=== PATIENT | female | born 1960 | race Caucasian/White ===

== ENCOUNTER 2016-03-23 09:31 | Observation (INO) | payer OTHER ==
[~2016-03-23] VITALS: Ht 157.5 cm; Wt 57.6 kg
--- NOTE | 2016-03-23 09:51 | NUR ---
PT PRESENTS TO ER C/O OF MIDSTERNAL CHEST PRESSURE THAT RADIATES DOWN LEFT ARM. PT ALSO STATES PAIN RADIATES TO LEFT SHOULDER BLADE. PT STATES SHE FEELS LIKE SHARP STABBING PAINS. PT STATES A SIMILAR EPISODE HAPPENED LAST YEAR BUT WAS CLEARED. PT STATES YESTERDAY SHE FELT LIKE HER BP WAS HIGH BECAUSE SHE WAS DIZZY. PT SCREAMING IN PAIN ON ARRIVAL.
--- NOTE | 2016-03-23 09:59 | NUR ---
MED STUDENT AT BEDSIDE FOR EVAL. REASSSURANCE PROVIDED TO PATIENT TO HELP DECREAE ANXIETY.
--- NOTE | 2016-03-23 09:59 | NUR ---
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
--- NOTE | 2016-03-23 10:04 | ED CARDIAC/CP/PALPITATIONS ---
See Addendum History of Present Illness General Chief Complaint: Chest Pain Stated Complaint: CP, BACK PAIN, ARM PAIN Source: patient, family Exam Limitations: no limitations Vital Signs & Intake/Output Vital Signs & Intake/Output Vital Signs Date Time Temp Pulse Resp B/P Pulse O2 O2 Flow FiO2 Ox Delivery Rate 03/23 1319 Room Air Room Air 03/23 1256 98.3 89 18 137/7 96 Room Air 03/23 0952 98.0 78 20 132/85 99 Room Air Allergies Coded Allergies: No Known Allergies (03/23/16) Reconcile Medications No Known Home Medications Triage Note: PT PRESENTS TO ER C/O OF MIDSTERNAL CHEST PRESSURE THAT RADIATES DOWN LEFT ARM. PT ALSO STATES PAIN RADIATES TO LEFT SHOULDER BLADE. PT STATES SHE FEELS LIKE SHARP STABBING PAINS. PT STATES A SIMILAR EPISODE HAPPENED LAST YEAR BUT WAS CLEARED. PT STATES YESTERDAY SHE FELT LIKE HER BP WAS HIGH BECAUSE SHE WAS DIZZY. PT SCREAMING IN PAIN ON ARRIVAL. Triage Nurses Notes Reviewed? yes HPI: Patient presents with a worsening sharp stabbing pain in her neck that radiates to her left shoulder blade down her left arm into her chest. Pain started 2 days ago and has been steadily worsening. Pain is currently a 10 out of 10. Patient cannot find any position of comfort. There is no numbness and tingling in her left arm. There are no aggravating or mitigating factors. Patient denies any shortness of breath. There is no lightheadedness. There is no nausea or vomiting. Patient was at work today and then just could not take the pain anymore so she comes to the emergency room for evaluation. Past History Travel History Traveled to [place] past 21 day No Medical History Any Pertinent Medical History? none Neurological: NONE EENT: NONE Cardiovascular: NONE Respiratory: NONE Gastrointestinal: NONE Hepatic: NONE Renal: NONE Musculoskeletal: NONE Surgical History Surgical History: non-contributory Psychosocial History What is your primary language Khmer Tobacco Use: Never used ETOH Use: occasional use Illicit Drug Use: denies illicit drug use Family History Hx Contributory? No Review of Systems Review of Systems Constitutional: Reports: no symptoms. EENTM: Reports: no symptoms. Respiratory: Reports: no symptoms. Cardiovascular: Reports: see HPI, chest pain. GI: Reports: no symptoms. Genitourinary: Reports: no symptoms. Musculoskeletal: Reports: see HPI, back pain, neck pain. Skin: Reports: no symptoms. Neurological/Psychological: Reports: no symptoms. Hematologic/Endocrine: Reports: no symptoms. Immunologic/Allergic: Reports: no symptoms. All Other Systems: Reviewed and Negative Physical Exam Physical Exam General Appearance: well developed/nourished, alert, anxious, severe distress Head: atraumatic, normal appearance Eyes: Bilateral: PERRL, EOMI. Ears, Nose, Throat: normal pharynx, normal ENT inspection, hearing grossly normal Neck: normal inspection, supple, full range of motion, no midline tenderness Respiratory: normal breath sounds, chest non-tender, no respiratory distress, lungs clear Cardiovascular: regular rate/rhythm, normal peripheral pulses Gastrointestinal: normal bowel sounds, soft, non-tender, no organomegaly Back: normal inspection, normal range of motion, no vertebral tenderness Extremities: normal inspection, normal capillary refill, normal range of motion, no edema Neurologic/Psych: no motor/sensory deficits, awake, alert, oriented x 3, normal mood/affect Skin: intact, normal color, warm/dry Core Measures ACS in differential dx? Yes ASA ordered for poss ACS? No-ACS ruled out Severe Sepsis Present: No Septic Shock Present: No Progress Differential Diagnosis: AMI Plan of Care: Orders Procedure Date/time Status MRI-CERVICAL SPINE 03/23 1419 Active Telemetry/Reconciliation Clerk 03/23 1012 Active TROPONIN LEVEL 03/23 1012 Complete D-DIMER 03/23 1012 Complete COMPREHENSIVE METABOLIC PANEL 03/23 1012 Complete CBC WITHOUT DIFFERENTIAL 03/23 1012 Complete EKG 03/23 0932 Active Laboratory Tests 03/23/16 1014: Anion Gap 10, Estimated GFR > 60, BUN/Creatinine Ratio 31.4 H, Glucose 85, Calcium 10.7 H, Total Bilirubin 0.7, AST 32, ALT 38, Alkaline Phosphatase 89, Troponin I < 0.01, Total Protein 7.9, Albumin 4.6, Globulin 3.3, Albumin/ Globulin Ratio 1.4, D-Dimer < 200, CBC w Diff NO MAN DIFF REQ, RBC 4.83, MCV 87.2, MCH 30.2, RDW 13.3, MPV 9.1, Gran % 58.4, Lymphocytes % 28.9, Monocytes % 6.5, Eosinophils % 4.7, Basophils % 1.5, Absolute Granulocytes 3.7, Absolute Lymphocytes 1.8, Absolute Monocytes 0.4, Absolute Eosinophils 0.3, Absolute Basophils 0.1, PUBS MCHC 34.7 Diagnostic Imaging: Viewed by Me: Radiology Read. Discussed w/RAD: Radiology Read. Radiology Impression: PATIENT: FRANCINE PAL PRESENT AGE: 55 PATIENT ACCOUNT NO: [id number] : 61 LOCATION: [facility] ORDERING PHYSICIAN: DOMINGA DAVIS MD SERVICE DATE: 03/23/161230 EXAM TYPE: CAT - CTA CHEST-AORTIC DISSECTION EXAMINATION: CTA CHEST CLINICAL INFORMATION: Dissection. Chest pain to back. COMPARISON: Chest x-ray performed same day. TECHNIQUE: Contiguous helical images of the chest were obtained following the administration of IV contrast. Multiplanar reconstructions were performed. MIPs were obtained and reviewed. CONTRAST: 95 mL Optiray 350. FINDINGS: CARDIOVASCULAR: Aorta: Normal. No dissection or aneurysm. Pulmonary Arteries and Branches: Normal. HEART: Unremarkable. No pericardial effusion. No arterial calcification LUNGS AND PLEURAL SPACES: Minimal posterior dependent atelectasis bilaterally. Airways: Clear. THORACIC INLET: Normal. ESOPHAGUS: Normal. LYMPH NODES: Normal. SOFT TISSUES AND CHEST WALL: Normal. UPPER ABDOMEN: Normal. SKELETAL: Minimal spondylosis of the dorsal spine. IMPRESSION: 1. No acute or significant abnormality. 2. No evidence for aortic dissection. 3. No pulmonary embolism. DICTATED BY: MAEGAN MCLAUGHLIN MD DATE/TIME DICTATED:03/23/161257 NEIGHBORHOOD CONSERVATION OFFICER:GIULIANO DATE/TIME TRANSCRIBED:03/23/161257 CONFIDENTIAL, DO NOT COPY WITHOUT APPROPRIATE AUTHORIZATION. <Electronically signed in Other Vendor System> SIGNED BY: MAEGAN MCLAUGHLIN MD 03/23/16 1354 CXR Impression: PATIENT: FRANCINE PAL PRESENT AGE: 55 PATIENT ACCOUNT NO: [id number] : 61 LOCATION: [facility] ORDERING PHYSICIAN: DOMINGA DAVIS MD SERVICE DATE: 03/23/161012 EXAM TYPE: RAD - XRY- PORTABLE CHEST XRAY EXAMINATION: XR PORTABLE CHEST CLINICAL INFORMATION: Chest pain COMPARISON: None. TECHNIQUE: Portable view of the chest was obtained. FINDINGS: No significant abnormality is noted involving the heart, lungs, mediastinum, bony thorax or soft tissues. IMPRESSION: Unremarkable examination. DICTATED BY: MAEGAN MCLAUGHLIN MD DATE/TIME DICTATED:03/23/161052 NEIGHBORHOOD CONSERVATION OFFICER:GIULIANO DATE/TIME TRANSCRIBED:03/23/161052 CONFIDENTIAL, DO NOT COPY WITHOUT APPROPRIATE AUTHORIZATION. <Electronically signed in Other Vendor System> SIGNED BY: MAEGAN MCLAUGHLIN MD 03/23/161056 Initial ED EKG: NSR, no ST T wave changes Hand-Off Endorsed To: NEAL LEDBETTER MD Endorsed Time: 1427 Pending: MRI Departure Departure Disposition: STILL A PATIENT Condition: Stable Clinical Impression Primary Impression: Neck pain Referrals: PATIENT HAS NO PRIMARY CARE DR Departure Forms: Customer Survey General Discharge Information Prescriptions: Current Visit Scripts No Known Home Medications Critical Care Note Critical Care Note Critical Care Time: non-applicable
--- NOTE | 2016-03-23 10:15 | NUR ---
Labs drawn and sent
--- NOTE | 2016-03-23 10:25 | NUR ---
PT WRITHING AROUND ON STRETCHER, YELLING IN PAIN. MEDICATED PER EMAR. WILL CONTINUE TO MONITOR.
[2016-03-23 10:27] LABS: ABSOLUTE BASOPHIL COUNT 0.1 /CUMM (0.0-0.2); ABSOLUTE EOSINOPHIL COUNT 0.3 /CUMM (0.0-0.7); ABSOLUTE GRANULOCYTE CT 3.7 /CUMM (1.4-6.5); ABSOLUTE LYMPH COUNT 1.8 /CUMM (1.2-3.4); ABSOLUTE MONOCYTE COUNT 0.4 /CUMM (0.10-0.60); BASOPHIL % 1.5 % (0.0-2.0); EOSINOPHIL % 4.7 % (0-5); GRANULOCYTE % 58.4 % (42.2-75.2); HEMATOCRIT 42.1 % (37-47); MEAN CORPUSCULAR HGB 30.2 PG (27.0-31.0); MEAN CORPUSCULAR HGB CONC 34.7 G/DL (33.0-37.0); MEAN CORPUSCULAR VOLUME 87.2 FL (81.0-99.0); MEAN PLATELET VOLUME 9.1 FL (7.4-10.4); PLATELET COUNT 240 /CUMM (130-400); RBC DISTRIBUTION WIDTH 13.3 % (11.5-14.5); RED BLOOD CELL CT 4.83 /CUMM (4.20-5.40); WHITE BLOOD CELL COUNT 6.4 /CUMM (4.8-10.8)
--- NOTE | 2016-03-23 10:57 | RADIOLOGY REPORT ---
EXAMINATION: XR PORTABLE CHEST CLINICAL INFORMATION: Chest pain COMPARISON: None. TECHNIQUE: Portable view of the chest was obtained. FINDINGS: No significant abnormality is noted involving the heart, lungs, mediastinum, bony thorax or soft tissues. IMPRESSION: Unremarkable examination.
--- NOTE | 2016-03-23 11:03 | NUR ---
PT MEDICATED WITH DILAUDID PER EMAR.
--- NOTE | 2016-03-23 11:56 | NUR ---
PT MEDICATED WITH DILAUDID PER EMAR.
--- NOTE | 2016-03-23 12:08 | NUR ---
LAB CALLED IN REGARDS TO PENDING CMP, PER LAB, WILL BE VERIFIED ANY MINUTE.
--- NOTE | 2016-03-23 13:54 | CT SCAN REPORT ---
EXAMINATION: CTA CHEST CLINICAL INFORMATION: Dissection. Chest pain to back. COMPARISON: Chest x-ray performed same day. TECHNIQUE: Contiguous helical images of the chest were obtained following the administration of IV contrast. Multiplanar reconstructions were performed. MIPs were obtained and reviewed. CONTRAST: 95 mL Optiray 350. FINDINGS: CARDIOVASCULAR: Aorta: Normal. No dissection or aneurysm. Pulmonary Arteries and Branches: Normal. HEART: Unremarkable. No pericardial effusion. No arterial calcification LUNGS AND PLEURAL SPACES: Minimal posterior dependent atelectasis bilaterally. Airways: Clear. THORACIC INLET: Normal. ESOPHAGUS: Normal. LYMPH NODES: Normal. SOFT TISSUES AND CHEST WALL: Normal. UPPER ABDOMEN: Normal. SKELETAL: Minimal spondylosis of the dorsal spine. IMPRESSION: 1. No acute or significant abnormality. 2. No evidence for aortic dissection. 3. No pulmonary embolism.
--- NOTE | 2016-03-23 14:23 | NUR ---
DR. DYE AT BEDSIDE FOR EVAL, PT MEDICATED WITH 5MG OF PO VALIUM PER eMAR. RICE SOCK PROVIDED FOR PTS NECK. PT TO HAVE MRI
--- NOTE | 2016-03-23 14:58 | NUR ---
TO GO TO MRI IN FIFTEEN MINUTES.
--- NOTE | 2016-03-23 17:03 | MRI REPORT ---
EXAMINATION: MR CERVICAL SPINE WITHOUT CONTRAST CLINICAL INFORMATION: Severe pain radiating down left arm. Assess for herniated disc. COMPARISON: None. TECHNIQUE: MRI of the cervical spine without contrast was obtained using routine sequences. Imaging is suboptimal due to patient motion artifact on multiple sequences. FINDINGS: VERTEBRAL BODIES AND PARASPINAL SOFT TISSUES: There is anatomic alignment of the vertebral bodies. There is mild narrowing of intervertebral disc height at C7, and there are moderate edematous endplate signal changes toward the left at this level. Vertebral body heights are maintained and there are no compression fractures. Overall, marrow signal is homogenous. The visualized paravertebral structures are unremarkable. CERVICOMEDULLARY JUNCTION AND VISUALIZED POSTERIOR FOSSA: The craniocervical and posterior fossa structures are normal. Accounting for artifact, spinal cord signal appears normal. There is moderate mucoperiosteal thickening in the visualized sphenoid sinuses. SPINAL LEVELS: C2-C3: Disc contour is normal. There is no central stenosis. The neural foramina are patent. C3-C4: There is mild bilateral facet arthropathy. There is a small posterior disc protrusion, but there is no central stenosis or spinal cord compression. The neural foramina are patent. C4-C5: There is a left-sided disc osteophyte complex and left-sided facet arthropathy with uncovertebral osteophytosis. There is effacement of CSF ventral to the spinal cord, but there is no spinal cord compression. There is moderate left foraminal narrowing. C5-C6: There is bilateral facet arthropathy. There is a posterior disc osteophyte complex. There is effacement of CSF ventral to the spinal cord without spinal cord compression. There are uncovertebral osteophytes. There is mild left foraminal narrowing. C6-C7: There is a broad-based posterior disc osteophyte complex which effaces CSF ventral to the spinal cord. There is mild flattening of the cord, and there is mild central stenosis. There are bilateral uncovertebral osteophytes. There is moderate to severe left and moderate right foraminal narrowing. C7-T1: Disc contour is normal. There is no central stenosis or foraminal narrowing. IMPRESSION: 1. There is a posterior disc osteophyte complex at C6-C7 which effaces CSF ventral to the spinal cord. There is mild central stenosis. There is uncovertebral osteophytosis, and there is moderate to severe left and moderate right foraminal narrowing. There are edematous endplate changes toward the left at this level. 2. There is a posterior disc osteophyte complex at C5-C6. There is no spinal cord compression. There is mild left foraminal narrowing. 3. There is a left-sided disc osteophyte complex and left-sided facet arthropathy with uncovertebral osteophytosis at C4-C5. There is no central stenosis. There is moderate left foraminal narrowing. 4. Spinal cord signal and caliber appear normal.
--- NOTE | 2016-03-23 17:05 | NUR ---
pt given ice water
--- NOTE | 2016-03-23 18:18 | NUR ---
PT MEDICATED WITH DILAUDID AND VALIUM PER EMAR. MEDS PUSHED SLOWLY. PT NOTED TO HAVE DECREASED RR. O2 WNL. DR. LEDBETTER AWARE AND AT BEDSIDE. PT MEDICATED WITH NARCAN PER EMAR. WILL CONTINUE TO MONITOR.
--- NOTE | 2016-03-23 18:47 | NUR ---
PT SLEEPING, NORMAL RISE AND FALL OF CHEST WITH RR WNL. O2 SAT WNL 95%. WILL CONTINUE TO MONITOR.
--- NOTE | 2016-03-23 19:07 | NUR ---
PT HAS BED ASSIGNMENT 229-2
--- NOTE | 2016-03-23 19:18 | NUR ---
THIS RN NOW ASSUMING CARE OF PT.
--- NOTE | 2016-03-23 19:58 | NUR ---
REPORT GIVEN TO BAIRON ON 2NA.
--- NOTE | 2016-03-23 20:14 | NUR ---
TRANSPORT CALLED AND MESSAGE LEFT.
--- NOTE | 2016-03-23 20:38 | NUR ---
HOUSESTAFF AT BEDSIDE.
--- NOTE | 2016-03-23 20:50 | NUR ---
TRANSPORT CALLED AGAIN.
[2016-03-23 21:00] VITALS: BP 122/80
--- NOTE | 2016-03-23 21:10 | History & Physical ---
AC MIDDLETON MD 03/23/16 2105: General Information and HPI MD Statement: I have seen and personally examined FRANCINE PAL and documented this H&P. The patient is a 55 year old F who presented with a patient stated chief complaint of [severe left-sided neck pain and radiating to left arm, left chest and left shoulder Associated with tingling and numbness.]. Source of Information: patient, family Exam Limitations: no limitations History of Present Illness: This is 55 year old healthy female with no past medical history presented from home with chief complaint of worsening sharp stabbing left-sided neck pain radiating to her left shoulder blade down to her left arm into her left chest associated with left arm tingling and numbness. Patient developed this pain all of a sudden 3 weeks prior to admission when she focal pin the morning with mild left-sided neck pain. Over course of past 3 weeks her pain progressed. She denied any trauma, overuse, physical exertion or recent infection. On arrival her pain was 10/10 sharp stable stabbing in nature located at left side of neck radiating down to her left shoulder and anterior chest and moving down to her left arm associated with tingling and numbness. She denied any bowel or bladder incontinence. She denies any fever, chills, chest pain, shortness of breath, nausea, vomiting, abdominal pain or urinary symptoms. No gross neuro deficit. Vitals on admission were T 98, HR 78, RR 20, BP 132/85, O2 sat 99% on room air. 40 or a definite probability about she doesn't have any primary care physician currently but USED to see Elis Fisher at [facility]. Allergies/Medications Allergies: Coded Allergies: No Known Allergies (03/23/16) Home Med list No Known Home Medications Compliance With Home Meds: GOOD Past History Travel History Traveled to [place] past 21 day No Medical History Neurological: NONE EENT: NONE Cardiovascular: NONE Respiratory: NONE Gastrointestinal: NONE Hepatic: NONE Renal: NONE Musculoskeletal: NONE Psychiatric: NONE Endocrine: NONE Surgical History Surgical History: non-contributory Past Family/Social History Family History Relations & Conditions if any FATHER FH: myocardial infarction, Onset: 60+. grandfather FH: myocardial infarction, Onset: 60+. maternal uncle FH: myocardial infarction, Onset: 50-60. Psychosocial History Where do you live? Home (and) Services at Home: None Primary Language: Nicaraguan Smoking Status: Former Smoker ETOH Use: occasional use Illicit Drug Use: denies illicit drug use Functional Ability ADLs Independent: dressing, eating, toileting, bathing. Ambulation: independent IADLs Independent: shopping, housework, finances, food prep, telephone, transportation , medication admin. Review of Systems Review of Systems Constitutional: Reports: see HPI. Exam & Diagnostic Data Last 24 Hrs of Vital Signs/I&O Vital Signs Date Time Temp Pulse Resp B/P Pulse O2 O2 Flow FiO2 Ox Delivery Rate 03/23 2100 97.8 61 18 122/80 94 Room Air 03/23 1923 97.8 83 20 129/74 97 Room Air 03/23 1823 65 15 97 Room Air Room Air 03/23 1717 97.2 83 20 164/107 98 Room Air 03/23 1319 Room Air Room Air 03/23 1256 98.3 89 18 137/7 96 Room Air 03/23 0952 98.0 78 20 132/85 99 Room Air Intake & Output 03/23 1600 03/23 0800 03/23 0000 Intake Total 0 Output Total Balance 0 Intake, Oral 0 Patient 126 lb Weight Physical Exam General Appearance Alert, Oriented X3, Cooperative, Moderate Distress Skin No Rashes HEENT Atraumatic, PERRLA, EOMI, Mucous Membr. moist/pink Neck Supple, No JVD Cardiovascular Regular Rate, Normal S1, Normal S2, No Murmurs Lungs Clear to Auscultation, Normal Air Movement Abdomen Normal Bowel Sounds, Soft, No Tenderness Neurological Normal Speech, Normal Tone, Sensation Intact, Cranial Nerves 3-12 NL, lt. UE strenngth 4/5 with decresed velocity shooter strength Extremities No Edema, Normal Pulses Vascular Normal Pulses, Pulses Symmetrical Last 24 Hrs of Labs/Fredi: Laboratory Tests 03/23/16 1014: Anion Gap 10, Estimated GFR > 60, BUN/Creatinine Ratio 31.4 H, Glucose 85, Calcium 10.7 H, Total Bilirubin 0.7, AST 32, ALT 38, Alkaline Phosphatase 89, Troponin I < 0.01, Total Protein 7.9, Albumin 4.6, Globulin 3.3, Albumin/ Globulin Ratio 1.4, D-Dimer < 200, CBC w Diff NO MAN DIFF REQ, RBC 4.83, MCV 87.2, MCH 30.2, RDW 13.3, MPV 9.1, Gran % 58.4, Lymphocytes % 28.9, Monocytes % 6.5, Eosinophils % 4.7, Basophils % 1.5, Absolute Granulocytes 3.7, Absolute Lymphocytes 1.8, Absolute Monocytes 0.4, Absolute Eosinophils 0.3, Absolute Basophils 0.1, PUBS MCHC 34.7 Diagnostic Data EKG Results Sinus tachycardia with heart rate of [address]-T changes noted poor R-wave progression, QTC 456 CXR Results Unremarkable Other Results CTA CHEST-AORTIC DISSECTION: IMPRESSION: 1. No acute or significant abnormality. 2. No evidence for aortic dissection. 3. No pulmonary embolism. MRI-CERVICAL SPINE: IMPRESSION: 1. There is a posterior disc osteophyte complex at C6-C7 which effaces CSF ventral to the spinal cord. There is mild central stenosis. There is uncovertebral osteophytosis, and there is moderate to severe left and moderate right foraminal narrowing. There are edematous endplate changes toward the left at this level. 2. There is a posterior disc osteophyte complex at C5-C6. There is no spinal cord compression. There is mild left foraminal narrowing. 3. There is a left-sided disc osteophyte complex and left-sided facet arthropathy with uncovertebral osteophytosis at C4-C5. There is no central stenosis. There is moderate left foraminal narrowing. 4. Spinal cord signal and caliber appear normal. Assessment/Plan Assessment: This is 55 year female with no past medical history presented with sharp stabbing left-sided neck pain which started 3 weeks ago and over a period of time progressed. She presented with sharp left sided neck pain radiating to her left shoulder and anterior chest with associated left arm tingling and numbness found to have degenerative cervical disease with moderate to severe foraminal narrowing at C6-7 and mild foraminal narrowing at C5 6 level suggesting possible cervical radiculopathy. Neurosurgery consulted over phone by ER physician and recommended outpatient follow-up. 1. Cervical radiculopathy - Admit to general medicine floor - Pain control with Dilaudid 1 mg every 4 when necessary, baclofen 10 mg 3 times a day for muscle relaxant, ketorolac 15 mg every 8 when necessary - Physical therapy and occupational therapy assessment - Second set of troponin to rule out underlying coronary disease - Bowel regimen - Outpatient neurosurgery follow-up 2. DVT prophylaxis Subcutaneous Lovenox 3. Full code As Ranked By This Provider Problem List: 1. Neck pain Core Measures/Miscellaneous Acute Coronary Syndrome ACS Diagnosis: No Cerebrovascular Accident CVA/TIA Diagnosis: No Congestive Heart Failure CHF Diagnosis: No Venous Thromboembolism VTE Risk Factors: Age > 40 VTE Prophylaxis Ordered Inpt: [facility]- [facility] d/t: No contraindications No VTE Pharm Prophylaxis d/t: No contraindications VTE Diagnosis: No VTE Type: NONE VTE Confirmed by (Test): NONE Severe Sepsis Severe Sepsis Present: No Septic Shock Septic Shock Present: No Miscellaneous Documentation Attending Case Discussed With: LEIGHTON BREWER MD Primary Care Physician: UNKNOWN Patient sees these Specialists none Level of Patient Care: General Medicine Resident Review Statement Resident Statement: examined this patient, discussed with financial internship, discussed with family, reviewed EMR data (avail), reviewed images, amended to note Other Findings: see HPI LEIGHTON BREWER 03/23/16 2250: Attending MD Review Statement Attending Statement Attending MD Statement: examined this patient, discuss w/resident/PA/DESOLDERER, agreed w/resident/PA/DESOLDERER, discussed with family, reviewed EMR data (avail), reviewed images, amended to note Attending Assessment/Plan: CC: left sided neck pain, left arm pain, left chest pain PMHx: no significant past medical history Patient started to notice left sided neck pain, shoulder blade pain, left arm pain since 3 weeks. Last 2 days patient's pain worsened, she started to notice left-sided chest pain going to his left arm so she came to ER. She describes pain as 10/10, sharp, stabbing, no aggravating factors, no inciting or relieving factors. Vitals: Afebrile, HR, RR, blood pressure, O2 saturation in acceptable range. On examination: A O 3, anxious, distressed due to pain, poor efforts left upper extremity secondary to pain to assist strength and range of motion, hand velocity shooter for 4/ 5, decreased due to pain. Radial pulse intact, normal perfusion. Otherwise no focal neurological deficit, cranial nerves intact, neck supple, no lymphadenopathy, mucosa moist. CVS: S1-S2, RRR. RS: Clear air entry bilaterally present. Abdomen: Soft, NT, ND, bowel sounds present. No dependent edema. No skin rashes or inflammation. Labs: BUN 22, calcium 10.7, otherwise CBC, BMP, LFT, troponin unremarkable. D- dimer less than 200. EKG: No acute changes. CXR: Unremarkable. CTA chest: No acute or significant abnormality. Cervical spine MRI without contrast: There is a posterior disc osteophyte complex at C6-C7 which effaces CSF ventral to the spinal cord, mild central stenosis., moderate to severe left and moderate right foraminal narrowing. There are edematous endplate changes toward the left at this level. There is a posterior disc osteophyte complex at C5-C6. There is no spinal cord compression. There is mild left foraminal narrowing. There is a left-sided disc osteophyte complex and left-sided facet arthropathy with uncovertebral osteophytosis at C4- C5. There is no central stenosis. There is moderate left foraminal narrowing. Spinal cord signal and caliber appear normal. A and P #1 cervical radiculopathy: Intractable pain. Patient received Flexeril, Toradol, multiple doses of hydromorphone, without much relief in ER. Extensive workup was obtained with CTA, EKG, troponin to rule out other causes of pain. MRI shows above-mentioned findings, Dr. Canales was contacted from ER, who suggested no acute intervention at this time. Pain management and physical therapy was suggested. Patient should be followed up outpatient with neurosurgery. Continue baclofen, PRN oxycodone, Toradol, hydromorphone. Continue senna and MiraLAX to avoid constipation. OT PT evaluation in a.m. Given patient has left-sided chest pain as well, repeat 1 more set of troponin, and EKG. #2 DVT prophylaxis with Lovenox
--- NOTE | 2016-03-23 21:53 | NUR ---
PT UPT TO FLOOR AT 2100. A/O X3, VSS. PT ON RA. C/O PAIN ON/OFF TO L NECK AND DOWN L ARM. DURACOLD TO NECK AND L ARM. PT DENIES NEED FOR PRN PAIN MED. CALL [facility] USE INSTRUCTED. FAMILY AT BEDSIDE. WILL MONITOR
--- NOTE | 2016-03-23 22:39 | NUR ---
PT CRYING OUT IN PAIN 12/12 AT 2230. PT S/P PAIN MED. PT IN POSITION IN BED YELLING OUT " IM IN SO MUCH PAIN HELP ME ". CRM MARKETING MANAGER KAREN AWARE AND IN PT ROOM TO ASSESS. ONE TIME DILAUDID AND ONE TIME VALIUM ORDERED AND GIVEN PER EMAR. PER CRM MARKETING MANAGER MARISSA BACLOFEN TO BE GIVEN SCHEDULED. WILL MONITOR CLOSELY. WARM PACK APPLIED TO L SHOULDER. WILL FOLLOW
--- NOTE | 2016-03-24 05:55 | NUR ---
PT CLOSELY MONITORED OVERNIGHT; NO COMPLAINTS OF PAIN. APPEARS TO HAVE SLEPT COMFORTABLY SINCE 0000. RR WNL. WILL MONITOR
[2016-03-24 06:30] VITALS: BP 126/64
--- NOTE | 2016-03-24 07:14 | PN- Housestaff ---
XIANG GUAMAN MD 03/24/16 0714: Subjective Follow-up For: Intractable neck pain Subjective: Patient seen and examined. She is seen lying flat in bed resting comfortably. She appears to be in no acute distress. She states that her neck pain is now well controlled but is fearful that it will return. She says she is normally a very healthy person and does not like feeling this way or being in the hospital. He denies any past history of neck pain. Additionally she denies any headache, fever, chills, chest pain, palpitations, shortness of breath, nausea, vomiting, diarrhea, numbness/tingling. Collateral information obtained from nursing staff/over revealed that patient was given narcotics and Valium for her symptoms of pain in the ER prior to coming to the floor which required reversal with Narcan. Review of Systems Constitutional: Reports: see HPI. Objective Last 24 Hrs of Vital Signs/I&O Vital Signs Date Time Temp Pulse Resp B/P Pulse O2 O2 Flow FiO2 Ox Delivery Rate 03/24 0630 98.2 59 18 126/64 95 Room Air 03/23 2100 97.8 61 18 122/80 94 Room Air 03/23 1923 97.8 83 20 129/74 97 Room Air 03/23 1823 65 15 97 Room Air Room Air 03/23 1717 97.2 83 20 164/107 98 Room Air 03/23 1319 Room Air Room Air 03/23 1256 98.3 89 18 137/7 96 Room Air 03/23 0952 98.0 78 20 132/85 99 Room Air Intake & Output 03/24 1600 03/24 0800 03/24 0000 Intake Total 600 260 Output Total Balance 600 260 Intake, IV 600 20 Intake, Oral 240 Patient 57.606 kg Weight Physical Exam General Appearance: Alert, Oriented X3, Cooperative, No Acute Distress Other Physical Findings: General - well developed, well nourished middle age woman in no acute distress HEENT - NCAT, PERRL, EOMI, anicteric sclera, nontender, free range of motion Cardio - S1, S2 w/o murmurs/gallops/rubs Resp - CTA bilaterally w/o wheezing/rhochi/crackles GI - soft, nontender, nondistended, bowel sounds present Neuro - Awake and alert, CN II - XII grossly intact Extremities - no edema, pulses intact Current Medications: Current Medications Sig/Stanislaw Start time Last Medication Dose Route Stop Time Status Admin Acetaminophen 650 MG Q6P PRN 03/23 2115 AC PO Baclofen 10 MG TID 03/23 2200 AC 03/24 PO 0852 Cyclobenzaprine HCl 0 .STK-MED ONE 03/23 1018 DC PO Cyclobenzaprine HCl 10 MG ONCE ONE 03/23 1015 DC 03/23 PO 03/23 1016 1025 Dexamethasone 8 MG ONCE ONE 03/23 1745 DC 03/23 IV 03/23 1746 1802 Diazepam 5 MG ONCE ONE 03/23 2245 DC 03/23 PO 03/23 2246 2234 Diazepam 5 MG TID 03/23 2200 CAN PO Diazepam 5 MG ONCE ONE 03/23 1745 DC 03/23 IV 03/23 1746 1802 Diazepam 0 .STK-MED ONE 03/23 1745 DC .ROUTE Diazepam 0 .STK-MED ONE 03/23 1417 DC PO Diazepam 5 MG ONCE ONE 03/23 1415 DC 03/23 PO 03/23 1416 1423 Enoxaparin Sodium 40 MG DAILY 03/24 1000 AC SC Hydromorphone HCl 1 MG ONCE ONE 03/23 2245 DC 03/23 IV 03/23 2246 2235 Hydromorphone HCl 1 MG Q6P PRN 03/23 2115 AC 03/24 IV 0720 Hydromorphone HCl 1 MG ONCE ONE 03/23 1745 DC 03/23 IV 03/23 1746 1802 Hydromorphone HCl 0 .STK-MED ONE 03/23 1745 DC .ROUTE Hydromorphone HCl 1 MG ONCE ONE 03/23 1200 DC 03/23 IV 03/23 1201 1156 Hydromorphone HCl 0 .STK-MED ONE 03/23 1149 DC .ROUTE Hydromorphone HCl 1 MG ONCE ONE 03/23 1100 DC 03/23 IV 03/23 1101 1103 Hydromorphone HCl 0 .STK-MED ONE 03/23 1058 DC .ROUTE Ketorolac 15 MG Q8P PRN 03/230 AC Tromethamine IV Ketorolac 15 MG Q6P PRN 03/23 2115 DC Tromethamine IV Ketorolac 30 MG ONCE ONE 03/23 1930 DC 03/23 Tromethamine IV 03/23 1931 1920 Ketorolac 0 .STK-MED ONE 03/23 1808 DC Tromethamine IM Ketorolac 0 .STK-MED ONE 03/23 1018 DC Tromethamine .ROUTE Ketorolac 30 MG ONCE ONE 03/23 1015 DC 03/23 Tromethamine IV 03/23 1016 1025 Morphine Sulfate 0 .STK-MED ONE 03/23 1019 DC .ROUTE Morphine Sulfate 4 MG ONCE ONE 03/23 1015 DC 03/23 IV 03/23 1016 1025 Naloxone HCl 0.4 MG ONCE ONE 03/23 1930 DC 03/23 IV 03/23 193 1920 Naloxone HCl 0 .STK-MED ONE 03/23 1800 DC .ROUTE Naloxone HCl 0.4 MG ONCE ONE 03/23 1645 CAN IV 03/23 1646 Omeprazole 40 MG DAILY AC 03/24 0700 AC PO Prednisone 60 MG ONCE ONE 03/23 1500 CAN PO 03/23 1501 Senna/Docusate Sodium 1 TAB AT BEDTIME 03/23 2200 AC PO Sodium Chloride 1,000 ML ONCE ONE 03/23 2345 AC 03/24 IV 03/24 1304 0015 Last 24 Hrs of Lab/Fredi Results Last 24 Hrs of Labs/Mics: Laboratory Tests 03/24/16 0640: Sodium Pending, Potassium Pending, Chloride Pending, Carbon Dioxide Pending, Anion Gap Pending, BUN Pending, Creatinine Pending, BUN/Creatinine Ratio Pending 03/23/16 2223: Troponin I < 0.01 03/23/16 1014: Anion Gap 10, Estimated GFR > 60, BUN/Creatinine Ratio 31.4 H, Glucose 85, Calcium 10.7 H, Total Bilirubin 0.7, AST 32, ALT 38, Alkaline Phosphatase 89, Troponin I < 0.01, Total Protein 7.9, Albumin 4.6, Globulin 3.3, Albumin/ Globulin Ratio 1.4, D-Dimer < 200, CBC w Diff NO MAN DIFF REQ, RBC 4.83, MCV 87.2, MCH 30.2, RDW 13.3, MPV 9.1, Gran % 58.4, Lymphocytes % 28.9, Monocytes % 6.5, Eosinophils % 4.7, Basophils % 1.5, Absolute Granulocytes 3.7, Absolute Lymphocytes 1.8, Absolute Monocytes 0.4, Absolute Eosinophils 0.3, Absolute Basophils 0.1, PUBS MCHC 34.7 Assessment/Plan Assessment: Patient continues to have brief episodes of extreme neck pain with numbness/ cramping in her hand causing her to yell out but quickly subsides within minutes. There is no clear inciting factor to these painful episodes. The pain associated with these episodes is not relieved with intravenous narcotics, muscle relaxants, warm compresses, or NSAIDs. Neurosurgeon Dr. Canales was contacted in regards to her neck pain and MRI findings while in the ER for which she suggested no acute intervention. [facility] was checked and any recent narcotic /controlled substances were reviewed, report was not available as patient has not received any of these medications. She is be discharged to home with a prescription of ibuprofen, valium, and oxycodone for breakthrough pain with instruction to follow up with Dr. Canales for further evaluation. Intractable neck pain/cervical radiculopathy: Chest x-ray was unremarkable. CTA was negative for pulmonary embolism and aortic dissection. MRI demonstrated moderate/severe left and right foraminal narrowing at C6/7. -Baclofen 10 mg by mouth 3 times a day -Pain Control -PT/OT evaluation Left sided chest pain: CTA was negative for any acute cardiopulmonary pathology and ruled out pulmonary embolism and aortic dissection. EKG on admission was unremarkable. Troponins 2 are negative. Pain experience is probably referred from the cervical radiculopathy and is most likely noncardiac in nature. Pain plan: -Acetaminophen 650 mg every 6 hours as needed for pain 1-3 -Toradol 15 mg IV every 8 hours as needed for pain 4-6 -Dilaudid 1 mg IV every 6 hours as needed for pain 7-10 -CT [facility] Review Diet- DVT prophylaxis-Lovenox CODE STATUS-full code Discharge/follow-up: -Follow up with Dr. Canales (neurosurgeon) as outpatient Problem List: 1. Neck pain Pain Ratin Pain Location: Neck Pain Goal: Pain 7 or less Pain Plan: As noted in plan Tomorrow's Labs & Rationales: None MARILYN CHILDS MD 03/24/16 1154: Attending MD Review Statement Attending Statement Attending MD Statement: examined this patient, discuss w/resident/PA/SCHOOL RESOURCE OFFICER, agreed w/resident/PA/SCHOOL RESOURCE OFFICER, reviewed EMR data (avail) Attending Assessment/Plan: Continue current management with Valium, Baclofen, Oxycodone, Toradol, PT eval
--- NOTE | 2016-03-24 09:23 | NUR ---
PT HAD SPASMX2 OF NECK AND L ARM, ADMINISTERED PO BACLOFEN AND APPLIED WARM COMPRESSES TO L ARM AND NECK W/ NO RELIEF, MD ROBLES NOTIFIED, ADMINISTERED IV VALIUM PER ORDER, WILL CONTINUE TO MONITOR.
--- NOTE | 2016-03-24 09:53 | NUR ---
Physical Therapy: Consult received and chart reviewed. Pt currently indpendent with mobility. Acute skilled PT is not indicated at this time. Thank you.
[2016-03-24 13:36] VITALS: BP 100/70
--- NOTE | 2016-03-24 14:50 | Patient Discharge Instructions ---
Discharge Instructions General Discharge Information Special Instructions: Contact the office of Dr. Ronit Canales to schedule an appointment for further evaluation. Acute Coronary Syndrome Inclusion Criteria At DC or during hospital stay patient has or had the following: ACS DIAGNOSIS No Discharge Core Measures Meds if any: Prescribed or Continued at Discharge Meds if any: NOT Prescribed or Continued at Discharge Congestive Heart Failure Inclusion Criteria At DC or during hospital stay patient has or had the following: CHF DIAGNOSIS No Discharge Core Measures Meds if any: Prescribed or Continued at Discharge Meds if any: NOT Prescribed or Continued at Discharge Cerebrovascular accident Inclusion Criteria At DC or during hospital stay patient has or had the following: CVA/TIA Diagnosis No Discharge Core Measures Meds if any: Prescribed or Continued at Discharge Meds if any: NOT Prescribed or Continued at Discharge Venous thromboembolism Inclusion Criteria VTE Diagnosis No VTE Type NONE VTE Confirmed by (Test) NONE Discharge Core Measures - Per Current guidelines, there needs to be overlap - treatment for the first 5 days of Warfarin therapy. - If discharged on Warfarin prior to 5 days of - overlap therapy, the patient will need to be - assessed for post discharge needs including - *Post discharge parental anticoagulation - *Warfarin and/or parental anticoagulation education - *Follow up date to check INR post discharge At least 5 days overlap therapy as Inpatient No Meds if any: Prescribed or Continued at Discharge Note: Overlap Therapy is Warfarin and Anticoagulant Meds if any: NOT Prescribed or Continued at Discharge
[2016-03-24] MEDS ORDERED: OXYCODONE HCL5 M2 PO (15:36)
[2016-03-24] MEDS ORDERED: IBUPROFEN800 M1 PO (15:36)
[2016-03-24] MEDS ORDERED: VALIUM10 M1 PO (15:36)
[2016-03-24 22:19] VITALS: BP 110/70
[2016-03-25 07:12] VITALS: BP 100/63
--- NOTE | 2016-03-25 08:20 | NUR ---
PT STATING SHE IS IN 10/10 PAIN. ROCKING BACK IN FORTH IN BED. MOANING OUT AND GRABBING L SHOULDER. PO VALIUM GIVEN FOR SPASMS, PT STATES THEY COME AND GO. STATES NUMBENESS TO L HAND AND PAIN THAN STARTS IN SHOULDER THEN RADIATES DOWN ARM. WILL MONITOR EFFECT.
--- NOTE | 2016-03-25 08:26 | PN- Housestaff ---
JANET REMY 03/25/16 0825: Subjective Follow-up For: 1. cervical radiculopathy Subjective: Complains of pain in her left upper extremity. Severity 12/12, associated with numbness in left upper extremity. She was to be discharged yesterday, but due to the severity of pain, she remained in the hospital for further observation. Vitals remained stable overnight. Afebrile and blood pressure was stable. Review of Systems Constitutional: Reports: see HPI. Objective Last 24 Hrs of Vital Signs/I&O Vital Signs Date Time Temp Pulse Resp B/P Pulse O2 O2 Flow FiO2 Ox Delivery Rate 03/25 0712 98.0 62 20 100/63 96 Room Air 03/24 2219 97.8 63 18 110/70 95 Room Air 03/24 1336 98.0 62 18 100/70 97 Room Air Intake & Output 03/25 1600 03/25 0800 03/25 0000 Intake Total 360 1530 Output Total 500 Balance 360 1030 Intake, IV 30 Intake, Oral 360 1500 Output, Urine 500 Physical Exam General Appearance: No Acute Distress Other Physical Findings: General Exam: AAOx3, acute distress, Skin: No rashes, no breakdown HEENT: PERRLA, EOMI Neck: Supple, No JVD No cervical lymphadenopathy CVS: Reg Rate, Normal S1,S2, No MGR Resp: Normal air entry, no ronchi/rales Abdomen: Soft, No tenderness, Normal Bowel Sounds Neuro: Normal Speech, Strength 5/5 b/l x 4 extremities, Sensation intact, CN III -XII NL, Reflexes 2+ Extremities: No cyanosis, pedal edema Current Medications: Current Medications Sig/[place] Start time Last Medication Dose Route Stop Time Status Admin Acetaminophen 650 MG Q6P PRN 03/23 2114 AC PO Baclofen 10 MG TID 03/23 220 AC 03/24 PO 2126 Diazepam 5 MG 4 TIMES/DAY PRN 03/24 1130 AC 03/25 PO 0819 Diazepam 5 MG ONCE ONE 03/24 0930 DC 03/24 IV 03/24 0931 0920 Diazepam 10 MG .STK-MED ONE 03/24 0916 DC IM 03/24 0917 Enoxaparin Sodium 40 MG DAILY 03/24 1000 AC SC Hydromorphone HCl 1 MG Q6P PRN 03/23 2114 DC 03/24 IV 0720 Ketorolac 30 MG Q8P PRN 03/24 1015 AC 03/24 Tromethamine IV 1805 Ketorolac 15 MG Q8P PRN 03/23 2130 DC Tromethamine IV Morphine Sulfate 4 MG Q4P PRN 03/24 1015 AC 03/25 IV 0234 Omeprazole 40 MG DAILY AC 03/24 0700 AC PO Oxycodone HCl 10 MG BID 03/24 1012 AC 03/24 PO 2126 Patient Medication 1 ED .STK-MED ONE 03/24 1410 DC Teaching ED 03/24 1411 Senna/Docusate Sodium 1 TAB AT BEDTIME 03/23 2200 AC 03/24 PO 2126 Sodium Chloride 1,000 ML ONCE ONE 03/23 2345 DC 03/24 IV 03/24 1304 0015 Assessment/Plan Assessment: Patient continues to have extreme neck pain with numbness/cramping in her hand causing her to yell out but quickly subsides within minutes. There is no clear inciting factor to these painful episodes. The pain associated with these episodes is not relieved with intravenous narcotics, muscle relaxants, warm compresses, or NSAIDs. Neurosurgeon Dr. Canales was contacted in regards to her neck pain and MRI findings while in the ER for which she suggested no acute intervention. CT PELLET MILL OPERATOR was checked and any recent narcotic/controlled substances were reviewed, report was not available as patient has not received any of these medications. She is be discharged to home with a prescription of ibuprofen, valium, and oxycodone for breakthrough pain with instruction to follow up with Dr. Canales for further evaluation. Intractable neck pain/cervical radiculopathy: Chest x-ray was unremarkable. CTA was negative for pulmonary embolism and aortic dissection. MRI demonstrated moderate/severe left and right foraminal narrowing at C6/7. -Baclofen 10 mg by mouth 3 times a day -Diazepam 5 mg every 6 -Pain Control -PT/OT evaluation Left sided chest pain: CTA was negative for any acute cardiopulmonary pathology and ruled out pulmonary embolism and aortic dissection. EKG on admission was unremarkable. Troponins 2 are negative. Pain experience is probably referred from the cervical radiculopathy and is most likely noncardiac in nature. Pain plan: -IV morphine every 4 when necessary -Tordol on 30 mg every 8 when necessary -Oxycodone 10 mg 3 times a day -CT PELLET MILL OPERATOR Review Diet- DVT prophylaxis-Lovenox CODE STATUS-full code Discharge/follow-up: -Follow up with Dr. Canales (neurosurgeon) as outpatient Problem List: 1. Neck pain Pain Ratin Pain Location: Neck Pain Goal: Pain 4 or less Pain Plan: Morphine, Toradol, oxycodone Tomorrow's Labs & Rationales: No labs necessary MARILYN CHILDS MD 03/25/16 1542: Attending MD Review Statement Attending Statement Attending MD Statement: examined this patient, discuss w/resident/PA/ELECTRONIC ASSEMBLER GROUP LEADER, agreed w/resident/PA/ELECTRONIC ASSEMBLER GROUP LEADER, reviewed EMR data (avail) Attending Assessment/Plan: Left arm and shoulder pain due to C6-C7 osteophyte formation and foraminal narrowing. Patient has intermittent episodes of severe pain mixed with pain free periods. She will benefit from outpatient physical therapy and outpatient neurosurgery follow up. Advised patient and family to remain active and continue stretching exercises, warm compresses and hot showers, continue activity, Valium PRN, Oxycodone PRN, Motrin TID. Patient can be discharged home if pain is improved.
--- NOTE | 2016-03-25 09:00 | NUR ---
PT STATES VALIUM DID NOT GIVE RELIEF AND REQUESTING SOMETHING ELSE. CONTINUES TO HAVE SAME PAIN MENTIONED IN PREVIOUS NOTE. MORPHINE IV GIVEN AT 0850. WILL MONITOR EFFECT.
--- NOTE | 2016-03-25 10:00 | NUR ---
PT STATES MORPHINE DECREASED PAIN FROM 10/10 TO 8/10. STILL STABBING, SHOOTING PAIN IN L SHOULDER WITH NUMB LEFT HAND. STILL ROCKING BACK AND FORTH. PO ROXICODONE, PO BACLOFEN, AND IV ZOFRAN GIVEN. PT STATES NAUSEA IS MAKING HER LOSE HER APPETITE. WILL MONITOR EFFECTS. PT GIVEN RICE SOCKS FOR SHOULDER.
--- NOTE | 2016-03-25 11:30 | NUR ---
PT STATES NAUSEA RELIEVED BUT PAIN PERSISTS. ABLE TO EAT AT THIS TIME. IV TORADOL GIVEN FOR PAIN 12/12. COLD PACK GIVEN TO L SHOULDER PER PT REQUEST. WILL MONITOR EFFECT.
--- NOTE | 2016-03-25 12:30 | NUR ---
PT ASLEEP. DAUGHTER STATES PATIENT NOT RESTLESS. FLACC 0. WILL MONITOR.
[2016-03-25 13:48] VITALS: BP 100/60
--- NOTE | 2016-03-25 16:25 | NUR ---
THIS NURSE NOTICED DISCHARGE ORDER PLACED BY COMMISSION AGENT LIVESTOCK. THIS NURSE CALLED TO QUESTION ORDER CONSIDERING PATIENT'S PAIN LEVEL THROUGHOUT THE DAY AND NOT RESPONDING TO PO PAIN MEDICATIONS. PER COMMISSION AGENT LIVESTOCK JANET REMY, DR. CHILDS SAW PATIENT AND IS OKAY WITH CURRENT MEDICATION DISCHARGE REGIMEN OF VALIUM 5 MG 4/DAY, ROXICODONE 5MG BID PRN, AND IBUPROFEN 800MG PRN. AFTER SPEAKING WITH PT'S DAUGHTER, SHE STATED THAT DR. CHILDS WANTED THIS NURSE TO CALL MEDICAL TEAM WHEN PT WOKE UP. NOTIFIED COMMISSION AGENT LIVESTOCK JANET AND WILMER MARIE WHEN PT AWOKE THAT PT WAS IN 10/10 PAIN, ROCKING IN BED, GRABBING LEFT ARM, AND MOANING OUT. UNABLE TO HOLD CONVERSATION DUE TO PAIN. PT AND FAMILY QUESTIONING WHY PHYSICAL THERAPY/OCCUPATIONAL THERAPY DID NOT COME TO INSTRUCT ON PROPER MOVEMENT OF L ARM. NO NOTE IN COMPUTER AT THIS TIME, WILL F/U. PT AND FAMILY NERVOUS ABOUT DC AND WOULD LIKE TO SEE DOCTOR. ENZO MARIE CALLED TO BEDSIDE TO ASSESS AND INSTRUCT. WILL MONITOR.
--- NOTE | 2016-03-25 16:26 | NUR ---
PO VALIUM AND ROXICODONE GIVEN UPON WAKING.
--- NOTE | 2016-03-25 16:49 | NUR ---
PT SEEN BY MULTIPLE DRUM SANDER JANET, ORDERED OUTPATIENT PHYSICAL THERAPY AND A FOLLOW UP WITH DR. ARANDA. DISCHARGE INSTRUCTIONS GIVEN TO PT AND DAUGHTER WHO BOTH VERBALIZED UNDERSTANDING. WHEELCHAIR CALLED. WILL MONITOR.
== END 2016-03-25 17:25 ==
LOC: ENRESERVDT → ENRESERVTM → ERH 09:31 → 2NA 18:28 → ERHI 18:28 → ENPENDDIS 18:28 → ERHI 18:28 → 2NA 20:55
PROVIDERS: Emergency Medicine; ADMIT Internal Medicine
DX: M54.12 Radiculopathy, cervical region (principal); R25.2 Cramp and spasm
CPT/HCPCS: 72141; 82436; 93005; 93010; 96374; 96375; 96376; G0378; J1650; J1885; J2310; J2405; J3360

== ENCOUNTER 2016-05-29 04:02 | Inpatient (IN) | payer OTHER ==
--- NOTE | 2016-05-25 16:35 | History & Physical Pre-Op ---
General Information and HPI MD Statement: I have seen and personally examined FRANCINE PAL and documented this H&P. The patient is a 55 year old F who presented with a patient stated chief complaint of severe neck pain and left arm pain]. Source of Information: patient Exam Limitations: no limitations History of Present Illness: 55-year-old right-handed woman with pain starting in March 2016 a starting is severe neck pain and left arm pain. Pain is excruciating and is accompanied by weakness. She feels better draping her left arm for her heads. Allergies/Medications Allergies: Coded Allergies: No Known Allergies (03/23/16) Home Med list Diazepam (Valium) 10 MG TABLET 5 MG PO 4 TIMES/DAY PRN SPASMS Ibuprofen 800 MG TABLET 1 TAB PO TID NECK PAIN Oxycodone HCl 5 MG CAPSULE 1 CAP PO BID PRN SEVERE PAIN Compliance With Home Meds: UNKNOWN Past History Medical History Blood Transfusion Hx: No Type of Reaction: Anaphylaxis (none), one Neurological: NONE EENT: NONE Cardiovascular: NONE Respiratory: NONE Gastrointestinal: NONE Hepatic: NONE Renal: NONE Musculoskeletal: NONE Psychiatric: NONE Endocrine: NONE Blood Disorders: NONE Cancer(s): NONE PUBLIC RELATIONS MANAGER/Reproductive: bacterial vaginitis Other Medical Hx: None other than of 2 children History of MRSA: No History of VRE: No History of CDIFF: No Isolation History: Standard Pneumonia Vaccine Status: Unknown if ever received Influenza Vaccine: 01/16/16 (the fall) Influenza Vaccine Status ate unknown Tetanus Status: up to date Surgical History Pertinent Surgical History: non-contributory Past Family/Social History Family History Relations & Conditions if any FATHER FH: myocardial infarction, Onset: 60+. grandfather FH: myocardial infarction, Onset: 60+. maternal uncle FH: myocardial infarction, Onset: 50-60. Psychosocial History Where Do You Live? Home Who Do You Live With? child Services at Home None Primary Language: Sami Smoking Status: Never Smoked ETOH Use: occasional use Illicit Drug Use: denies illicit drug use Living Will? unknown Power of Fabric Inspector/HCP? unknown Name of POA/HCP: unknown Other Social History: Work in a [employer] industry Functional Ability ADLs Independent: dressing, eating, toileting, bathing. Ambulation: independent IADLs Independent: shopping, housework, finances, food prep, telephone, transportation , medication admin. Employment History Employment: Employed Profession/Employer: beautician Review of Systems Review of Systems Constitutional: Denies: no symptoms. EENTM: Denies: no symptoms. Cardiovascular: Denies: no symptoms. Respiratory: Denies: no symptoms. GI: Denies: no symptoms. Genitourinary: Denies: no symptoms. Musculoskeletal: Reports: see HPI. Skin: Denies: no symptoms. Neurological/Psychological: Reports: see HPI. Hematologic/Endocrine: Denies: no symptoms. Immunologic/Allergic: Denies: no symptoms. All Other Systems: Reviewed and Negative Post Menopausal: Yes Mammogram Testing Status: Unknown if test ever done Pap Smear Testing Status: Unknown if test ever done Colonoscopy Testing Status: Unknown if test ever done Comments Symptoms uniquely related to cervical and arm pain Exam & Diagnostic Data Last 24 Hrs of Vital Signs/I&O Afebrile Physical Exam General Appearance Alert, Oriented X3, Cooperative, Severe Distress Skin No Rashes HEENT ecreased range of motion of her neck. Spurling sign axial loading sign positive to the left Neck arked limitation of range of motion Lymphatic Cervical nl Cardiovascular Regular Rate Lungs Clear to Auscultation Abdomen Soft Neurological motor strength reveals weakness of biceps and brachioradialis and wrist extension and finger flexors on the left she has 3+ reflexes of biceps and brachial radialis are absent left facet or reflex.. Decreased sensation to pinprick over C6 and C7 distribution. Extremities No Clubbing Vascular Normal Pulses Breasts Breast appear nl Reproductive (FEMALE) Normal female genitalia Pelvic (FEMALE) deferred to primary care Rectal deferred to primary care Last 24 Hrs of Labs/Fredi: No evidence of anemia Diagnostic Data ITS Data Unobtainable at this time EKG Results CC PMD note CXR Results C PMD felt Other Results Seen PMD felt Assessment/Plan Assessment/Plan: #1 herniated cervical disc C6 7 #2 posterior osteophytes As Ranked By This Provider Problem List: 1. Neck pain
[~2016-05-29] VITALS: Ht 157.5 cm; Wt 55.8 kg
[~2016-05-29 04:02] MED LIST: IBUPROFEN800 M1 PO; OXYCODONE HCL5 M2 PO; VALIUM10 M1 PO
--- NOTE | 2016-05-29 17:09 | Operative Report ---
Operative/Inv Procedure Report Surgery Date: 05/29/16 Name of Procedure: #1 anterior cervical discectomy C4-5 C5-C6 C6-7 #2 preparation of space for fusion C4-5 C5-C6 C6-7 Pre-Operative Diagnosis: Left cervical radiculopathy Spondylotic disc disease C4 5 C5-C6 C6 7 Post-Operative Diagnosis: Same Estimated Blood Loss: 50ml to 100ml Surgeon/Field Broomer: JOSIE FELICIANO,KYLE Banks MD Anesthesia: general endotracheal tube Monitors: Neurophysiological monitoring provided by special equipment technician IV Fluids: D5 normal saline Implants: Medtronic implants Urine Output: 200 mL Drains: None Specimens: H&P Microbiology: None Tourniquet: None Complications: None Condition: Stable Operative Indication: 55-year-old woman with sudden onset of neck pain and excruciating left arm pain who continues to have severe arm pain and developed weakness. Time while failing conservative measures. Indication for surgery alternative risks and possible complication were discussed at length including disfigurement and paralysis once her MRI demonstrated severe foraminal entrapment at C4 5 C5-C6 C6 7 with elements of disc herniation at C6 7 Operative/Procedure Note Note: Patient was intubated supine was kept supine her head slightly elevated and her shoulders elevated on a rolled IV back A halter traction device was placed in 15 pounds of weight were used After prepping and draping the neck incision was made in the skin fold after infiltrating with Xylocaine and epinephrine Sharp dissection was carried down to the anterior cervical flap shower once we had gone through the platysma and this was stripped superiorly and inferiorly so as to see all 3 disc spaces [place] were positioned and a film confirmed that we were at C4-5 C5-6 C6-7 Following this using a Trimline retractor horizontally and vertically and under the illumination provided for by the Leica microscope the spaces were entered first at C4 5 [id number] anterior osteophytes were drilled down with the high-speed drill disc material was removed with straight and up-biting pituitaries and micro-grasper and intervertebral body asbestos shingle inspector was placed and starting at C4-5 the posterior ligament was opened and the posterior osteophytes opened with 2 mm Kerrison the foramen they were then opened bilaterally but more extensively on the left with 2 mm Kerrisons The same procedure was accomplished at C5-6 and then at C6-7 and C560 was morbid anterior osteophyte requiring drilling C6-7 the space was itself larger and the posterior osteophyte was slightly less developed At C5-6 and at C6-7 there were small pieces of herniated disc behind the posterior longitudinal ligament Once this had been removed from all 3 spaces and the nerve hook passed readily through the foramen on the left-hand side using first angled curettes and then rasps and once again the high-speed drill the spaces at C4 5 C5 6 and C6 7 were then prepared for fusion once the spaces had been prepared for the fusion was allowed to proceed in this we dictated separately by Findings: #1 herniated disc C5 6 and C6 7 left #2 foraminal entrapment due to spondylosis C4 5 C5 6 C6 7 left Discharge Disposition: PACU Additional Comments: Neurophysiology monitoring did not reveal any abnormalities during the case apart from her short burst towards the left at C5 6. At the end of the procedure the motor potentials which had been exceedingly weak on the left arm seemed to have her return of function CC: VICK FELICIANO,KECIA
[2016-05-29 18:59] VITALS: BP 108/80
--- NOTE | 2016-05-29 20:31 | NUR ---
LATE ENTRY: PATIENT ARRIVED TO FLOOR AT 1840 FROM PACU S/P ACD WITH FUSION VS 98.1 AX 75 16 108/80 97% 2L O2 ALERT, DROWSY, BUT AROUSABLE, UNABLE TO ANSWER QUESTIONS, SIGNIFICANT OTHER PRESENT, HELPED WITH ADMISSION BECAUSE OF PATIENT'S STATE AND INABILITY TO AMBULATE AT THIS TIME, PATIENT A FALL RISK, ALL PRECAUTIONS IN PLACE. DSG TO ANTERIOR NECK WITH HARD COLLAR IN PLACE. L ARM WEAKNESS, +CMS. BARR CATHETER IN PLACE WITH CLEAR YELLOW URINE DRAINING. IV #20 TO RH WITH NS @ 75 ML/HR RUNNING. #20 LH HEP LOCKED, FLUSHES WELL. CONTINUE TO MONITOR.
[2016-05-29 21:10] VITALS: BP 90/50
[2016-05-29 23:26] VITALS: BP 103/56
[2016-05-30 00:57] VITALS: BP 100/70
[2016-05-30 06:13] VITALS: BP 116/68
--- NOTE | 2016-05-30 07:14 | PN- Orthopedic ---
See Addendum Subjective Subjective: The patient was seen this morning postoperatively day #1. She reports her pain is under adequate control however she still experiencing some left upper extremity weakness with numbness in her left hand. She is also experiencing left neck and shoulder blade pain which all have been there preoperatively. She has no complaints at the current time and reports being able to swallow adequately. Objective Vital Signs and I&Os Vital Signs Date Time Temp Pulse Resp B/P Pulse O2 O2 Flow FiO2 Ox Delivery Rate 05/30 0613 98.4 62 20 116/68 100 Room Air 05/30 0057 97.9 72 20 100/70 98 Nasal 2.0L Cannula 05/30 0000 Nasal 2.0L Cannula 05/29 2326 98.0 66 18 103/56 98 Nasal 2.0L Cannula 05/29 2110 99.0 62 18 90/50 98 Nasal 2.0L Cannula 05/29 1859 97 Nasal 2.0L Cannula 05/29 185 98.0 75 16 108/80 97 Nasal 2.0L Cannula Intake & Output 05/30 0800 05/30 0000 05/29 1600 05/29 0800 05/29 0000 05/28 1600 Intake Total 720 2520 Output Total 750 950 Balance -30 1570 Intake, IV 600 2400 Intake, Oral 120 120 Output, Other 100 Output, Urine 750 850 Patient 123 lb Weight Physical Exam: Gen.: Alert and in no obvious distress Skin: Warm and dry Neck: In soft cervical collar. Surgical dressing is clean, dry, and intact. There is no significant edema or hematoma appreciated. Extremities: Patient moves all 4 extremities with equal 5 out of 5 strengths aside from her left upper extremity. Left upper extremity has 4-5 strength with decreased fine sensation in her fingers. Bilateral lower extremities are warm without calf tenderness or significant edema. Assessment/Plan Assessment/Plan Assessment: 55-year-old female status post ACD fusion C5 through 7. Postoperative the patient is progressing as expected and her pain is under adequate control. She has a stable neuro exam and has yet to ambulate. Plan: Hep-Lock IV fluids and DC Araujo catheter Out of bed and ambulate in cervical collar Follow-up morning laboratory studies Limit narcotics Strict I's and O's Monitor neuro exam GI and DVT prophylaxis with Alps only no heparin due to nature of surgery Advanced to a regular diet Core Measures/Miscellaneous Araujo Catheter Date In: 05/29/16 Still Needed? No Venous Thromboembolism VTE Risk Factors: Age > 40, Surgery VTE Contraindications: Severe Spine Trauma x4 wk No Pharm VTE Prophylaxis D/T: Surgical Contraindication VTE Diagnosis: No Beta Concepcion Is Beta Concepcion a Home Med? No Antibiotics Is Patient on Antibiotics? No
[2016-05-30 08:09] LABS: ABSOLUTE BASOPHIL COUNT 0 /CUMM (0.0-0.2); ABSOLUTE EOSINOPHIL COUNT 0 /CUMM (0.0-0.7); ABSOLUTE GRANULOCYTE CT 6.1 /CUMM (1.4-6.5); ABSOLUTE LYMPH COUNT 1.1 /CUMM (1.2-3.4); ABSOLUTE MONOCYTE COUNT 0.6 /CUMM (0.10-0.60); BASOPHIL % 0.3 % (0.0-2.0); EOSINOPHIL % 0.1 % (0-5); GRANULOCYTE % 77.6 % (42.2-75.2); HEMATOCRIT 33.1 % (37-47); MEAN CORPUSCULAR HGB 29.9 PG (27.0-31.0); MEAN CORPUSCULAR HGB CONC 33.6 G/DL (33.0-37.0); MEAN CORPUSCULAR VOLUME 88.9 FL (81.0-99.0); MEAN PLATELET VOLUME 8.6 FL (7.4-10.4); PLATELET COUNT 216 /CUMM (130-400); RBC DISTRIBUTION WIDTH 13.9 % (11.5-14.5); RED BLOOD CELL CT 3.72 /CUMM (4.20-5.40); WHITE BLOOD CELL COUNT 7.8 /CUMM (4.8-10.8)
--- NOTE | 2016-05-30 09:54 | PN- Neurosurgical ---
Surgical Brief Attending Note Brief Attending Note: POD#1 resolution of preop arm pain persistant weakness,as expected incision c and d some PSM spasms doing well should go home today d/w family and PA
[2016-05-30] MEDS ORDERED: CYCLOBENZAPRINE5 M2 PO (10:47)
[2016-05-30] MEDS ORDERED: ULTRAM50 M1 PO (10:47)
--- NOTE | 2016-05-30 10:51 | Patient Discharge Instructions ---
Discharge Instructions General Discharge Information You were seen/treated for: Left cervical radiculopathy Spondylotic disc disease C4 5 C5-C6 C6 7 You had these procedures: 05/29/16 #1 anterior cervical discectomy C4-5 C5-C6 C6-7 #2 preparation of space for fusion C4-5 C5-C6 C6-7 Watch for these problems: Redness, swelling, purulent drainage, fever, signs of infection. Uncontrolled pain. Excessive bleeding. Changes in sensation in extremities. Chest pain. Shortness of breath. Do not soak the wound: Yes No bath, but you may shower: Yes (starting 05/31/16) Other wound care: daily dry dressing changes 48hrs after surgery. Diet Recommended Diet: Mechanical soft diet Activity Full Activity/No Limits: No Pounds, do NOT lift more than: 5 Other activity limits: No strenuous activity or exercise. Additional ACTIVITY Info: Neck collar to remain in place at all times. Acute Coronary Syndrome Inclusion Criteria At DC or during hospital stay patient has or had the following: ACS DIAGNOSIS No Discharge Core Measures Meds if any: Prescribed or Continued at Discharge Meds if any: NOT Prescribed or Continued at Discharge Congestive Heart Failure Inclusion Criteria At DC or during hospital stay patient has or had the following: CHF DIAGNOSIS No Discharge Core Measures Meds if any: Prescribed or Continued at Discharge Meds if any: NOT Prescribed or Continued at Discharge Cerebrovascular accident Inclusion Criteria At DC or during hospital stay patient has or had the following: CVA/TIA Diagnosis No Discharge Core Measures Meds if any: Prescribed or Continued at Discharge Meds if any: NOT Prescribed or Continued at Discharge Venous thromboembolism Inclusion Criteria VTE Diagnosis No VTE Type NONE VTE Confirmed by (Test) NONE Discharge Core Measures - Per Current guidelines, there needs to be overlap - treatment for the first 5 days of Warfarin therapy. - If discharged on Warfarin prior to 5 days of - overlap therapy, the patient will need to be - assessed for post discharge needs including - *Post discharge parental anticoagulation - *Warfarin and/or parental anticoagulation education - *Follow up date to check INR post discharge At least 5 days overlap therapy as Inpatient No Meds if any: Prescribed or Continued at Discharge Note: Overlap Therapy is Warfarin and Anticoagulant Meds if any: NOT Prescribed or Continued at Discharge
[2016-05-30 11:30] VITALS: BP 116/78
--- NOTE | 2016-05-30 15:30 | RADIOLOGY REPORT ---
EXAMINATION: Fluoroscopy in the operating suite. CLINICAL INFORMATION: Patient for ACD with fusion, C5-C6 and C6-C7. COMPARISON: MRI the cervical spine on 03/23/2016. TECHNIQUE: Fluoroscopic assistance was provided to Dr. Mahmood for performance of an anterior spinal discectomy and fusion. Time of fluoroscopy, not recorded. KVP 40. MAS 100. A single lateral view is submitted for review. FINDINGS/IMPRESSION: The patient is intubated and esophageal probes are in place. A guide marker has been placed at the mid-level of the vertebral body at C6. Please refer to operative notes for further details.
--- NOTE | 2016-06-02 13:06 | Operative Report ---
Operative/Inv Procedure Report Surgery Date: 05/29/16 Name of Procedure: 1. Anterior cervical discectomy and fusion C4-5 C5-6 C6-7 #2 instrumentation from C4 to C7 #3. 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 Initial presentation in our office was after she had been evaluated by a neurosurgeon for cervical radiculopathy. She had severe neck pain with associated pain weakness and paresthesias in the left upper extremity. There was no history of injury or previous history of neck problems. Her evaluation was consistent with a cervical radiculopathy. She had neurologic findings on exam therefore she was referred to neurosurgery for assessment and probable recommendation for surgical intervention. She was seen by the neurosurgeon and there was recommendation for surgical intervention as well. The treatment plan would include a C4 5, C5 6 and C6 7 discectomy, fusion, instrumentation and allograft insertion. Risks, benefits and expectations of surgical and further nonsurgical options were discussed including but not limited to persistent pain, weakness, injury to blood vessel or nerve, anesthesia risks, infection. She wished to proceed with surgical management Operative/Procedure Note Note: This dictation is the orthopedic portion of the surgical procedure the neurosurgical portion and decompression has been dictated by the neurosurgeon. The orthopedic portion follows. The disc spaces were evaluated. Patient had relatively smaller vertebral bodies. There were serially debrided of any remaining soft tissue. The interspaces were debrided from C4 5. Soft tissue remnants were removed with curved curet there was good hemostasis following the previously dictated discectomy and decompression. Serial rasps and spacers were used to determine that a 6 mm graft would be chosen for the C4 5 interspace. I was satisfied with the level nature of the endplates of C4 and C5. A 6 mm cornerstone graft was smoothed over using the bur to take some of the edge away. Mild additional manual traction was applied to this cervical spine and the 6 mm cornerstone graft was inserted in place with good fit the traction was removed after the graft was impacted in position. Similar debridement was completed at C5 6. After serial rasping and sizing, a 6 mm cornerstone graft was chosen. The edges were smoothed over using the bur. The 6 mm graft was impacted in in similar fashion with mild additional cervical traction manually followed by insertion of the graft into the C5 6 interspace. I was satisfied with the compression after traction was removed. I was satisfied with the level nature of the graft and the endplates at C5 and C6. The C6 7 interspace was evaluated irrigated any remaining soft tissue was removed using a curved curet. Again the bur was used in this case to level the anterior aspects of C6 and 7 followed by rasping and insertion of a 7 mm cornerstone graft. Again this was done in standard fashion as the other levels were done. Once this was completed all traction was removed from the cervical spine. A 55 mm Gleason there was no need to contour the plate. It was applied to the anterior aspect of the cervical spine and held in place with 2 standard pins. This was followed by a fixed angle screw at C7 followed by variable angle screws at C6 C5 and C4. Intraoperative fluoroscopic images were obtained to verify position and overall alignment. I was satisfied with the appearance on the fluoroscopic image. I then applied the right-sided screws in similar fashion with fixed angle at the most inferior caudal level followed by variable angle screws at C6 C5 and C4. Again intraoperative fluoroscopic images were obtained I was satisfied with the position of the screws the alignment of the screws and the grafts. No sign of complication. Copious irrigation followed. I then used the locking mechanism on the plate to lock the screws in place and locked the construct in place. Copious irrigation followed. He self-retaining retractors were removed one at a time to make sure there was no ongoing bleeding. Copious irrigation followed at every level of closure after irrigation was completed hemostatic agent was injected. Platysma and subcutaneous tissue were closed with 3-0 Vicryl suture and skin was closed with a running 3-0 nylon suture appropriate just his were applied patient was awakened and taken to recovery in good condition. No intraoperative complications. Blood loss for this portion of the surgical procedure was less than 50 mL Discharge Disposition: PACU
--- NOTE | 2016-06-20 08:23 | Surgical Discharge Summary ---
Visit Information Visit Dates Admission Date: 05/29/16 Discharge Date: 05/30/16 History of Present Illness Chief Complaint: cervical discomfort Medical History Blood Transfusion Hx: No Type of Reaction: Anaphylaxis (none), one Neurological: NONE EENT: NONE Cardiovascular: NONE Respiratory: NONE Gastrointestinal: NONE Hepatic: NONE Renal: NONE Musculoskeletal: NONE Psychiatric: NONE Endocrine: NONE Blood Disorders: NONE Cancer(s): NONE METAL SPINNER/Reproductive: bacterial vaginitis Other Medical Hx: None other than of 2 children History of MRSA: No History of VRE: No History of CDIFF: No Isolation History: Standard Pneumonia Vaccine Status: Unknown if ever received Influenza Vaccine: 01/16/16 (the fall) Influenza Vaccine Status ate unknown Tetanus Status: up to date Surgical History Pertinent Surgical History: ACD WITH FUSION Family History Relations & Conditions If Any: FATHER FH: myocardial infarction, Onset: 60+. grandfather FH: myocardial infarction, Onset: 60+. maternal uncle FH: myocardial infarction, Onset: 50-60. Psychosocial History Where Do You Live? Home Who Do You Live With? Daughter Services at Home: None What is Your Primary Language? Slovak ETOH Use: occasional use Other Addictive Behavior: Work in a [employer] industry Review of Systems: neck and arm pain;no chest pain Physical Exam: limited neck motion;left arm limitation of motion Hospital Course Course Attending Physician: KYLE GALINDO MD Primary Care Physician: TRIXIE FELICIANO,[facility] Course: discharged in am with resolution of symptoms Allergies: Coded Allergies: No Known Allergies (03/23/16) Disposition Summary Disposition Principal Diagnosis: cervical disc [id number] Additional Diagnosis: none Discharge Disposition: home or self care Discharge Instructions General Discharge Information Code Status: Full Code Patient's Diet: regular Patient's Activity: full no driving Follow-Up Instructions/Appts: in office in a week Medications at Discharge Discharge Medications: Stop taking the following medications: Diazepam (Valium) 10 MG TABLET ORAL 4 TIMES A DAY as needed for SPASMS Qty = 28 Ibuprofen (Ibuprofen) 800 MG TABLET ORAL THREE TIMES DAILY Qty = 45 Oxycodone HCl (Oxycodone HCl) 5 MG CAPSULE ORAL TWICE DAILY as needed for SEVERE PAIN Qty = 10 Start taking the following new medications: Tramadol HCl (Ultram) 50 MG TABLET 1 Tablet ORAL EVERY SIX HOURS NEEDED as needed for PAIN Qty = 30 No Refills Comments: Last Taken: 05/30/16 Time: 1400PM Cyclobenzaprine HCl (Cyclobenzaprine HCl) 5 MG TABLET 10 Tablet ORAL THREE TIMES A DAY NEEDED Qty = 20 No Refills Comments: NOT GIVEN IN HOSPITAL
== END 2016-05-30 14:32 | DRG 473 ==
LOC: ENRESERVDT → ENRESERVTM → SDA 04:02 → ENPENDDIS 04:02 → 2NB 18:40
PROVIDERS: Nurse Practitioner; ADMIT Neurological Surgery
PROC: 4A11X4G Monitoring of Peripheral Nervous Electrical Activity, Intraoperative, External Approach (ICD-10-PCS; principal; 2016-05-29)
PROC: 0RT30ZZ Resection of Cervical Vertebral Disc, Open Approach (ICD-10-PCS; principal; 2016-05-29)
PROC: 0RG20K0 Fusion of 2 or more Cervical Vertebral Joints with Nonautologous Tissue Substitute, Anterior Approach, Anterior Column, Open Approach (ICD-10-PCS; principal; 2016-05-29)
DX: M50.123 Cervical disc disorder at C6-C7 level with radiculopathy (principal); M47.22 Other spondylosis with radiculopathy, cervical region; M25.78 Osteophyte, vertebrae
CPT/HCPCS: 2NBSP; 36415; 72040; 81025; 82436; 87086; 88304; C1713; J0131; J0690; J1885; J2405; J2550; J3370; J7060